=== PATIENT | male | born 1960 | race Asian ===

== ENCOUNTER 2024-03-30 07:05 | Observation (INO) | payer OTHER, SELFPAY ==
[2024-03-30] VITALS (18 sets, daily range): BP systolic 105–151; BP diastolic 58–83; PULSE 71–117; RESP 14–29; TEMP 36.2–36.6; O2SAT 92–100; BMI 24.3
--- NOTE | 2024-03-30 07:15 | ED.ABDPAIN ---
HPI - Abdominal Pain General Chief Complaint: Abdominal Pain Stated Complaint: L side ABD Pain Time Seen by Provider: 03/30/24 07:15 History of Present Illness HPI narrative: Patient is a 63-year-old male with no significant past medical history presents to the emergency department for 4 hours of left lower quadrant abdominal pain, describes it as intermittent waxing waning nothing making it better or worse, states he feels like it does radiate a little bit to his belly button. No nausea no vomiting. Does have a history of appendectomy. Denies any trauma or falls denies any other systemic symptoms at this time. Related Data Previous Rx's Medication Instructions Recorded cephalexin 500 mg capsule 500 mg PO TID 5 days #15 caps 03/30/24 ondansetron 4 mg disintegrating 4 mg PO Q8H PRN nausea and 03/30/24 tablet vomiting 5 days #15 tabs oxycodone-acetaminophen 5 mg-325 1 tab PO Q8H PRN pain 3 days #9 03/30/24 mg tablet (Percocet) tabs Allergies Allergy/AdvReac Type Severity Reaction Status Date / Time tamsulosin [From Flomax] Allergy Verified 03/30/24 07:18 Review of Systems Review of Systems Narrative: General: Denies fever, chills, weight loss HEENT: Denies headache, eye drainage, eye irritation, head trauma, sore throat, voice change Cardiovascular: Denies any chest pain, palpitations, shortness of breath, tachycardia Respiratory: Denies any shortness of breath, cough, wheeze, stridor GI/: Positive abdominal pain, denies, nausea, vomiting, diarrhea, bright red blood per rectum, melanotic stools, urinary frequency, urinary retention, dysuria, hematuria MSK: Denies any joint pain, muscle pains, swelling Skin: Denies any rashes, lesions, discoloration Neuro: Denies any headache, lightheadedness, dizziness, fainting, weakness Psych: Denies SI/HI Patient History Social History Smoking Status: Never smoker Exam Narrative Exam Narrative: General: Cooperative, comfortable, well-developed, not in acute distress HEENT: Normocephalic, atraumatic, PERRLA, normal sclera, eyelids normal, Neck: Active full range of motion, atraumatic Chest: Normal to inspection, negative crepitus, no overlying erythema ecchymosis Respiratory: Normal respiratory effort, not in acute respiratory distress, clear to auscultation bilaterally negative cough, wheeze, tachypnea, rhonchi, rales Cardiology: Regular rate rhythm negative gallop, murmur, rubs GI/: Normal to inspection, soft, nonrigid, mild tenderness to palpation to left lower quadrant, exam deferred MSK: Full range of active range of motion of all 4 extremities, atraumatic Skin: No rashes lesions noted Neuro: Alert awake oriented x3, moves all 4 extremities spontaneously, cranial nerves intact, able to answer all questions appropriately follows commands appropriately Psych: Cooperative, negative suicidal or homicidal ideations Initial Vital Signs Initial Vital Signs: Vital Signs Temperature 97.8 F 03/30/24 07:11 Pulse Rate 74 03/30/24 07:11 Respiratory Rate 16 03/30/24 07:11 Blood Pressure 139/75 03/30/24 07:11 Pulse Oximetry 100 03/30/24 07:11 Oxygen Delivery Method Room Air 03/30/24 07:11 Course Orders Ordered: ED Orders 03/30/24 07:09 Complete Blood Count AUTO DIFF Stat Comprehensive Metabolic Panel Stat Lactate (Lactic Acid) Stat Lipase Stat 03/30/24 07:18 CT abdomen pelvis w con Stat 03/30/24 08:16 Urine Microscopic Stat Discontinued Medications Sodium Chloride (Normal Saline 0.9%) 1,000 mls @ 1,000 mls/hr IV BOLUS ONE Stop: 03/30/24 08:47 Last Admin: 03/30/24 08:11 Dose: 1,000 mls/hr Documented By: KANDICE Ketorolac Tromethamine (Ketorolac 30 Mg/Ml Vial) 30 mg IV NOW ONE Stop: 03/30/24 07:18 Last Admin: 03/30/24 07:22 Dose: 30 mg Documented By: KANDICE Vital Signs Vital signs: Vital Signs - 8 hr 03/30/24 07:11 Temperature 97.8 F Pulse Rate 74 Respiratory Rate 16 Blood Pressure 139/75 Pulse Oximetry 100 Oxygen Delivery Method Room Air MDM - Abdominal Pain Differential Diagnosis Differential diagnosis: Likely abdominal pain, constipation, diverticulitis, small bowel obstruction and other (Urinary tract infection, electrolyte abnormality) Lab Data 03/30/24 07:09 03/30/24 07:09 Labs: Lab Results 03/30/24 Range/Units 07:09 WBC 7.2 (4.5-11.0) X10^3/uL RBC 4.51 (4.5-5.9) X10^6/uL Hgb 15.0 (13.5-17.5) g/dL Hct 44.9 (41-53) % MCV 99.6 (80-100) fL MCH 33.3 (26-34) PG MCHC 33.5 (30-36) % RDW 12.7 (11.6-14.8) % Plt Count 286 (150-400) X10^3/uL Neut % (Auto) 78.0 H (50-75) % Lymph % (Auto) 15.8 L (25-40) % [place] % (Auto) 5.2 (3-14) % Eos % (Auto) 0.5 L (2-4) % Baso % (Auto) 0.5 (0-2) % Neut # (Auto) 5600 (2602-7557) /uL Lymph # (Auto) 1100 (2971-4026) /uL [place] # (Auto) 400 (0-900) /uL Eos # (Auto) 0 (0-450) /uL Baso # (Auto) 0 (0-100) /uL Sodium 139 (137-145) mmol/L Potassium 4.1 (3.4-5.1) mmol/L Chloride 104 (98-107) mmol/L Carbon Dioxide 29 (22-32) mmol/L BUN 17 (9-20) mg/dL Creatinine 0.92 (0.66-1.25) mg/dL Estimated GFR > 60 (>60) mL/min BUN/Creatinine Ratio 18.5 (6-22) Glucose 161 H (80-110) mg/dL Lactate 2.4 H (0.7-2.1) mmol/L Calcium 9.0 (8.4-10.2) mg/dL Total Bilirubin 0.8 (0.2-1.3) mg/dL AST 28 (17-59) IU/L ALT 18 (<50) IU/L Alkaline Phosphatase 87 (38-126) U/L Total Protein 7.6 (6.3-8.2) g/dL Albumin 4.5 (3.5-5.0) g/dL Globulin 3.1 (1.7-4.1) g/dL Albumin/Globulin Ratio 1.5 (1.0-2.8) Lipase 56 (23-300) U/L Point of care testing: Urine Dip Bedside Urine Glucose Negative Bedside Urine Bilirubin - Negative Bedside Urine Ketone + 15 Urine Specific [place] 1.020 Bedside Urine Occult Blood +++ Bedside Urine pH 6.0 Bedside Urine Protein +/- 15 Bedside Urine Urobilinogen - Negative Bedside Urine Nitrite - Negative Bedside Urine Leukocytes +/- [address] scan - abdomen/pelvis: Radiologist's Impression: [address] [address] [address] Scan Report Signed Patient: Bryn Malloy MR#: [id number] : 1960 Acct:[id number] Age/Sex: 63 / M Date of Service: 03/30/24 Loc: Accession Number: [id number] Procedure: CT abdomen pelvis w con Ordering Provider: Osito Flores D.O. PROCEDURE: CT ABDOMEN PELVIS W CON INDICATIONS: llq abd pain TECHNIQUE: After the administration of intravenous contrast, axial sections acquired from the lung bases to the pubic symphysis. Coronal and sagittal reformats were performed. For radiation dose reduction, the following was used: automated exposure control, adjustment of mA and/or kV according to patient size. COMPARISON: None. FINDINGS: Image quality: Diagnostic. Lower Chest: Bibasilar dependent atelectasis is seen. ABDOMEN: Liver: No solid mass. Likely small cysts are seen scattered in liver parenchyma measures up to 1 cm in size in right hepatic dome. Gallbladder: No radiopaque gallstones or wall thickening. Biliary ducts: No biliary dilation. Pancreas: No ductal dilation. Spleen: Size is within normal limits. Adrenal Glands: No adrenal nodules. Kidneys and Ureters: There is prominence of left renal collecting system and left ureter extending to the level of left UVJ. 4 x 2 mm calcification is seen in the dependent portion of distal left ureter/UVJ series 2, image 115 and series 5, image 53 suggestive of distal left ureteral/UVJ stone. Simple appearing bilateral renal cysts are seen measures up to 5 x 5 cm in size in midpole right kidney and up to 3.7 x 3.3 cm in size in midpole left kidney. No complex renal cystic lesion which requires follow up. Stomach and Bowel: There is no evidence of bowel obstruction. Moderate fecal stasis in the colon is seen. No abnormal bowel wall thickening or mesenteric fat stranding. No abscess collection. Postsurgical changes are noted in right lower quadrant consistent with prior appendectomy. Peritoneum: No abnormal intraperitoneal fluid. No free air. Ventral Wall: No significant ventral hernia. Abdominal Nodes: No retroperitoneal or mesenteric adenopathy by size criteria. Vessels: Aorta and inferior vena cava are normal in size. PELVIS: Pelvic Organs: Markedly enlarged prostate gland with significant mass effect on floor of urinary bladder is seen.. Bladder: No bladder wall thickening, accounting for underdistention. Pelvic Nodes: No enlarged lymph nodes. Miscellaneous: No inguinal hernias are seen. Bones: No aggressive osseous abnormality. Degenerative disc disease at L5-S1 level is seen. Osteoarthritic changes are noted throughout bony pelvis. IMPRESSION: 1. Finding is suggestive of a 4 x 2 mm left distal ureteral/UVJ stone with [id number] left-sided hydronephrosis and hydroureter. No right-sided hydronephrosis or hydroureter. Simple appearing bilateral renal cysts as above. 2. Markedly enlarged prostate gland with significant mass effect on floor of urinary bladder. No gross bladder wall abnormalities. No calcified bladder stones. 3. Moderate constipation. There is no bowel obstruction or abnormal bowel wall thickening. No abscess collection. No free fluid or free air. Prior appendectomy. 4. Small hypodensities scattered in liver parenchyma likely represent hepatic cysts. [facility] Narrative Medical decision making narrative: Patient is a 63-year-old male with no significant past medical history is status post appendectomy presents for 4 hours of left lower quadrant cramping abdominal pain with radiation to the umbilicus. Patient without any signs of acute urinary tract infection, CT scan was positive for urolithiasis at the distal UVJ, 4 x 2, mild hydro nephrosis and hydroureter to the left. Patient also with enlarged prostate, however patient states that he knows about this. Additional information was obtained at time of discharge, he states that he does have a history of kidney stones, states that in the past they have been large enough that he would need intervention, he states that he is currently here on and a [place] due to recent passing of his family member, states he will be here for a little bit, but normally lives in [place], therefore I will provide him with urology here, and instructed him to follow up with them here if he is still in [place]. He also states that he has syncopal episodes whenever he is on Flomax therefore will defer administration of this at this time, states that his urologist has told him to avoid this in the past. At time of re-evaluation patient able to tolerate p.o. liquids and solids, nontoxic-appearing, feels comfortable attempting to pass this at home, Strict return precautions were given safe for discharge home with outpatient follow up Discharge Plan Departure Patient Disposition: Home Clinical Impression: Urolithiasis Activity Restrictions/Additional Instructions: Please follow up with Urology Please read the discharge instructions sheet carefully and bring all papers to all doctor follow-up visits, as it may contain information that your doctor may want to see. Disease processes change and evolve, if your symptoms worsen or if you develop any new symptoms that are concerning to you please return for evaluation. Your evaluation today does not show any evidence of any life-threatening/serious illnesses requiring admission to the hospital or surgery. Please follow-up with your doctor for re-evaluation in approximately 1 day. Seek immediate medical attention for any worrisome symptoms. Prescriptions: New oxycodone-acetaminophen [Percocet] 5-325 mg tablet 1 tab PO Q8H PRN (Reason: pain) 3 Days Qty: 9 0RF ondansetron 4 mg tablet,disintegrating 4 mg PO Q8H PRN (Reason: nausea and vomiting) 5 Days Qty: 15 0RF cephalexin 500 mg capsule 500 mg PO TID 5 Days Qty: 15 0RF Stand Alone Forms: Patient Portal/API
--- NOTE | 2024-03-30 07:18 | DI.CT.S_ITS ---
PROCEDURE: CT ABDOMEN PELVIS W CON INDICATIONS: llq abd pain TECHNIQUE: After the administration of intravenous contrast, axial sections acquired from the lung bases to the pubic symphysis. Coronal and sagittal reformats were performed. For radiation dose reduction, the following was used: automated exposure control, adjustment of mA and/or kV according to patient size. COMPARISON: None. FINDINGS: Image quality: Diagnostic. Lower Chest: Bibasilar dependent atelectasis is seen. ABDOMEN: Liver: No solid mass. Likely small cysts are seen scattered in liver parenchyma measures up to 1 cm in size in right hepatic dome. Gallbladder: No radiopaque gallstones or wall thickening. Biliary ducts: No biliary dilation. Pancreas: No ductal dilation. Spleen: Size is within normal limits. Adrenal Glands: No adrenal nodules. Kidneys and Ureters: There is prominence of left renal collecting system and left ureter extending to the level of left UVJ. 4 x 2 mm calcification is seen in the dependent portion of distal left ureter/UVJ series 2, image 115 and series 5, image 53 suggestive of distal left ureteral/UVJ stone. Simple appearing bilateral renal cysts are seen measures up to 5 x 5 cm in size in midpole right kidney and up to 3.7 x 3.3 cm in size in midpole left kidney. No complex renal cystic lesion which requires follow up. Stomach and Bowel: There is no evidence of bowel obstruction. Moderate fecal stasis in the colon is seen. No abnormal bowel wall thickening or mesenteric fat stranding. No abscess collection. Postsurgical changes are noted in right lower quadrant consistent with prior appendectomy. Peritoneum: No abnormal intraperitoneal fluid. No free air. Ventral Wall: No significant ventral hernia. Abdominal Nodes: No retroperitoneal or mesenteric adenopathy by size criteria. Vessels: Aorta and inferior vena cava are normal in size. PELVIS: Pelvic Organs: Markedly enlarged prostate gland with significant mass effect on floor of urinary bladder is seen.. Bladder: No bladder wall thickening, accounting for underdistention. Pelvic Nodes: No enlarged lymph nodes. Miscellaneous: No inguinal hernias are seen. Bones: No aggressive osseous abnormality. Degenerative disc disease at L5-S1 level is seen. Osteoarthritic changes are noted throughout bony pelvis. IMPRESSION: 1. Finding is suggestive of a 4 x 2 mm left distal ureteral/UVJ stone with [id number] left-sided hydronephrosis and hydroureter. No right-sided hydronephrosis or hydroureter. Simple appearing bilateral renal cysts as above. 2. Markedly enlarged prostate gland with significant mass effect on floor of urinary bladder. No gross bladder wall abnormalities. No calcified bladder stones. 3. Moderate constipation. There is no bowel obstruction or abnormal bowel wall thickening. No abscess collection. No free fluid or free air. Prior appendectomy. 4. Small hypodensities scattered in liver parenchyma likely represent hepatic cysts. Dictated by: Brandt Silva M.D. on 03/30/2024 at 8:30 Approved by: Brandt Silva M.D. on 03/30/2024 at 8:37
[2024-03-30] MEDS: KETOROLAC 30 MG/ML VIAL IV (07:22)
[2024-03-30 07:26] LABS: Add Manual Diff / Slide Review NO; Basophils Absolute Auto 0 /uL (0-100); Basophils Percent Auto 0.5 % (0-2); Eosinophils Absolute Auto 0 /uL (0-450); Eosinophils Percent Auto 0.5 % (2-4); Hematocrit 44.9 % (41-53); Lymphocytes Absolute Auto 1100 /uL (1100-4500); Lymphocytes Percent Auto 15.8 % (25-40); Mean Corpuscular HGB Conc 33.5 % (30-36); Mean Corpuscular Hemoglobin 33.3 PG (26-34); Mean Corpuscular Volume 99.6 fL (80-100); Monocytes Absolute Auto 400 /uL (0-900); Monocytes Percent Auto 5.2 % (3-14); Neutrophils Absolute Auto 5600 /uL (1500-7000); Platelet Count 286 X10^3/uL (150-400); Red Blood Cell Count 4.51 X10^6/uL (4.5-5.9); Red Cell Distribution Width 12.7 % (11.6-14.8); White Blood Cell Count 7.2 X10^3/uL (4.5-11.0)
[2024-03-30 07:31] LABS: Alanine Aminotransferase 18 IU/L (<50); Albumin 4.5 g/dL (3.5-5.0); Albumin Globulin Ratio 1.5 (1.0-2.8); Alkaline Phosphatase 87 U/L (38-126); Aspartate Aminotransferase 28 IU/L (17-59); BUN Creatinine Ratio 18.5 (6-22); Bilirubin Total 0.8 mg/dL (0.2-1.3); Blood Urea Nitrogen 17 mg/dL (9-20); Carbon Dioxide 29 mmol/L (22-32); Chloride 104 mmol/L (98-107); Estimated Glomerular Filt Rate > 60 mL/min (>60); Globulin 3.1 g/dL (1.7-4.1); Glucose 161 mg/dL (80-110); HEMOLYSIS < 15 (0-50); Lipase 56 U/L (23-300); Potassium 4.1 mmol/L (3.4-5.1); Sodium 139 mmol/L (137-145); Total Protein 7.6 g/dL (6.3-8.2)
[2024-03-30 07:32] LABS: Lactate (Lactic Acid) 2.4 mmol/L (0.7-2.1)
[2024-03-30] MEDS: SODIUM CHLORIDE 0.9% 1,000 ML 1000 ML IV ×2 (08:11→10:26)
[2024-03-30 08:58] LABS: Reflexed Lactate in 2 Hours Y
[2024-03-30 09:06] LABS: Bacteria Urine Occasional (0-1); Culture Indicated Urine Cult Not Indicated; Mucus Urine 1+ (Negative); RBC Urine 10-30/HPF (0-5/HPF); Squamous Epithelial Cell Urine 0-1 /HPF (0-5/HPF); Urine Volume 10mL (spun); WBC Urine 1-5/HPF (0-5/HPF)
[2024-03-30] MEDS: cephALEXin 250 MG CAPSULE 500 MG PO (09:07)
[2024-03-30] MEDS: KETOROLAC 30 MG/ML VIAL 15 MG IV (09:08)
--- NOTE | 2024-03-30 09:13 | PC.NURSE ---
stated okay to give torodol due to fluids received and labs. declined repeat lactate.
[2024-03-30] MEDS: MORPHINE 4 MG/ML INJ IM (09:32)
[2024-03-30] MEDS: ONDANSETRON 4 MG/2 ML INJ IV ×4 (10:25→20:00)
[2024-03-30] MEDS: MORPHINE 4 MG/ML INJ IV (10:25)
--- NOTE | 2024-03-30 11:13 | P.HP_ITS ---
History of Present Illness History of Present Illness Chief complaint: L side ABD Pain Narrative: From ED provider: Patient is a 63-year-old male with no significant past medical history presents to the emergency department for 4 hours of left lower quadrant abdominal pain, describes it as intermittent waxing waning nothing making it better or worse, states he feels like it does radiate a little bit to his belly button. No nausea no vomiting. Does have a history of appendectomy. Denies any trauma or falls denies any other systemic symptoms at this time. Additional information: The patient has a history of kidney stones. These are calcium oxalate. He had a procedure last year in his right kidney which sounds like laser lithotripsy. The patient presented to [facility] because of his father's passing. He has been working on fentanyl arrangements and then developed acute left groin and flank pain. He presented to the ED with nausea and pain. The pain is described as colicky with radiation to the groin. Imaging did confirm evidence of a 4 mm stone with hydronephrosis. The patient has had urinary tract infection associated with kidney stones in the past. No recent fevers, or chills. He was given Flomax once in the past and had precipitous hypotension. He is reluctant to use this again. [facility] Social History household members: spouse Smoking Status: Never smoker alcohol intake: never Meds Home Medications and Allergies Home Medications Medication Instructions Recorded Confirmed Type cephalexin 500 mg capsule 500 mg PO TID 5 days #15 caps 03/30/24 Rx ondansetron 4 mg disintegrating 4 mg PO Q8H PRN nausea and 03/30/24 Rx tablet vomiting 5 days #15 tabs oxycodone-acetaminophen 5 mg-325 1 tab PO Q8H PRN pain 3 days #9 03/30/24 Rx mg tablet (Percocet) tabs Allergies Allergy/AdvReac Type Severity Reaction Status Date / Time tamsulosin [From Flomax] Allergy Verified 03/30/24 07:18 Review of Systems Review of Systems Narrative: All else reviewed and otherwise unremarkable except as noted in the history and physical. Exam Vital Signs (past 8 hours): - 03/30/24 07:09 03/30/24 07:11 03/30/24 07:30 Temperature 97.8 F Pulse Rate 75 74 71 Respiratory Rate 16 20 Blood Pressure 139/75 Pulse Oximetry 100 100 97 Oxygen Delivery Method Room Air 03/30/24 07:31 03/30/24 07:31 03/30/24 08:16 Temperature Pulse Rate 75 83 Respiratory Rate 21 17 Blood Pressure 136/68 Pulse Oximetry 99 100 Oxygen Delivery Method 03/30/24 08:30 03/30/24 09:00 03/30/24 09:17 Temperature 97.5 F L Pulse Rate 74 85 80 Respiratory Rate 14 17 Blood Pressure Pulse Oximetry 100 100 99 Oxygen Delivery Method 03/30/24 09:17 Temperature Pulse Rate Respiratory Rate Blood Pressure 135/67 Pulse Oximetry Oxygen Delivery Method Oxygen Delivery Method Room Air Narrative Exam Narrative: NAD, alert and oriented, fluent speech, calm. Normocephalic skull, EOMI, anicteric sclera, symmetric pupils. Oropharynx unremarkable, no droop. Neck supple, midline trachea, no adenopathy. Lungs clear, normal rate and effort. Heart regular, no murmur gallop or rub. Abdomen is soft, non distended and non tender. Extremities are free of edema. Skin is free of rash or lesions. Joints are not swollen or deformed. Judgment appears to be normal. Objective Imaging CT scan - abdomen: Radiologist's impression: 1. Finding is suggestive of a 4 x 2 mm left distal ureteral/UVJ stone with [id number] left-sided hydronephrosis and hydroureter. No right-sided hydronephrosis or hydroureter. Simple appearing bilateral renal cysts as above. 2. Markedly enlarged prostate gland with significant mass effect on floor of urinary bladder. No gross bladder wall abnormalities. No calcified bladder stones. 3. Moderate constipation. There is no bowel obstruction or abnormal bowel wall thickening. No abscess collection. No free fluid or free air. Prior appendectomy. 4. Small hypodensities scattered in liver parenchyma likely represent hepatic cysts. Labs 03/30/24 07:09 03/30/24 07:09 Labs: Laboratory Results - last 24 hr 03/30/24 03/30/24 07:09 08:16 WBC 7.2 RBC 4.51 Hgb 15.0 Hct 44.9 MCV 99.6 MCH 33.3 MCHC 33.5 RDW 12.7 Plt Count 286 Neut % (Auto) 78.0 H Lymph % (Auto) 15.8 L [place] % (Auto) 5.2 Eos % (Auto) 0.5 L Baso % (Auto) 0.5 Neut # (Auto) 5600 Lymph # (Auto) 1100 [place] # (Auto) 400 Eos # (Auto) 0 Baso # (Auto) 0 Sodium 139 Potassium 4.1 Chloride 104 Carbon Dioxide 29 BUN 17 Creatinine 0.92 Estimated GFR > 60 BUN/Creatinine Ratio 18.5 Glucose 161 H Lactate 2.4 H Calcium 9.0 Total Bilirubin 0.8 AST 28 ALT 18 Alkaline Phosphatase 87 Total Protein 7.6 Albumin 4.5 Globulin 3.1 Albumin/Globulin Ratio 1.5 Lipase 56 Urine RBC 10-30/hpf H Urine WBC 1-5/hpf Ur Squamous Epith Cells 0-1 /hpf Urine Bacteria Occasional (0-1) Urine Mucus 1+ H Ur Culture Indicated? Cult not indicated Vol Urine Centrifuged 10ml (spun) Assessment & Plan Assessment & Plan narrative: 1. Obstructive left nephrolithiasis with hydronephrosis, present on admission and active. Plan: -admit to observation, anticipate a 1 midnight length of stay. -IV fluids and analgesics. -antiemetics. He is full resuscitation JOHN is March 31. He lives with his in [place], he was up here alone for his father's . Time-Based Coding :: 35 min spent with patient and on the chart (including review of chart, obtaining history, exam, reviewing outside data, placing orders, documenting exam and treatment plan, and counseling patient) on 03/30. Quality MIPS - Admit I confirm the patient?s Advance Care Plan is present, Code status is documented, Surrogate decision maker is in patient?s record [If Yes, STOP here]: Yes MIPS - Meds 'Current medications' to include all prescriptions, [id number] products, herbals, cannabis/cannabidiol products, and vitamin/mineral/dietary (nutritional) supplements. I have utilized all available resources to obtain, update, or review the patient?s current medications. [If Yes, STOP here]: Yes
[2024-03-30] MEDS: HYDROMORPHONE 0.5 MG INJ IV (11:48)
[2024-03-30] MEDS: SODIUM CHLORIDE 0.45% 1,000 ML 100 ML IV ×2 (12:51→22:01)
[2024-03-30 13:56] LABS: MRSA (Nasal) PCR NOT DETECTED (Not Detect)
[2024-03-30] MEDS: METOCLOPRAMIDE 10 MG/2 ML INJ 5 MG IV (15:49)
--- NOTE | 2024-03-30 18:36 | PC.NURSE ---
Admit Note Patient arrived to room 229 via wheelchair at 1236, SBA to bed, steady on feet. Denies pain, reports nausea. Medicated per emar. All belongings at bedside including cell phone, shoes, and clothing. Oriented to room and to bed/tv/call light controls. Using urinal independently to void, straining all urine. Call light within reach.
[2024-03-31 05:11] LABS: Add Manual Diff / Slide Review NO; Basophils Absolute Auto 0 /uL (0-100); Basophils Percent Auto 0.3 % (0-2); Eosinophils Absolute Auto 0 /uL (0-450); Eosinophils Percent Auto 0.4 % (2-4); Hematocrit 40.3 % (41-53); Hemoglobin 13.5 g/dL (13.5-17.5); Lymphocytes Absolute Auto 1200 /uL (1100-4500); Lymphocytes Percent Auto 12.6 % (25-40); Mean Corpuscular HGB Conc 33.5 % (30-36); Mean Corpuscular Volume 98.5 fL (80-100); Monocytes Absolute Auto 900 /uL (0-900); Monocytes Percent Auto 9.6 % (3-14); Neutrophils Absolute Auto 7300 /uL (1500-7000); Neutrophils Percent Auto 77.1 % (50-75); Platelet Count 225 X10^3/uL (150-400); Red Blood Cell Count 4.09 X10^6/uL (4.5-5.9); Red Cell Distribution Width 12.5 % (11.6-14.8); White Blood Cell Count 9.4 X10^3/uL (4.5-11.0)
[2024-03-31 05:23] LABS: Sodium 137 mmol/L (137-145)
[2024-03-31 05:26] LABS: BUN Creatinine Ratio 19.4 (6-22); Blood Urea Nitrogen 14 mg/dL (9-20); Calcium 8.3 mg/dL (8.4-10.2); Carbon Dioxide 26 mmol/L (22-32); Chloride 108 mmol/L (98-107); Estimated Glomerular Filt Rate > 60 mL/min (>60); Glucose 89 mg/dL (80-110); HEMOLYSIS 26 (0-50); Potassium 3.6 mmol/L (3.4-5.1)
[2024-03-31] MEDS: ACETAMINOPHEN 325 MG TABLET 650 MG PO (06:38)
[2024-03-31] MEDS: SODIUM CHLORIDE 0.45% 1,000 ML 100 ML IV (07:40)
[2024-03-31 07:53] VITALS: BP 135/69; PULSE 86; TEMP 36.6; O2SAT 99
--- NOTE | 2024-03-31 08:56 | P.DS_ITS ---
History of Present Illness History of Present Illness Chief complaint: L side ABD Pain Narrative: From ED provider: Patient is a 63-year-old male with no significant past medical history presents to the emergency department for 4 hours of left lower quadrant abdominal pain, describes it as intermittent waxing waning nothing making it better or worse, states he feels like it does radiate a little bit to his belly button. No nausea no vomiting. Does have a history of appendectomy. Denies any trauma or falls denies any other systemic symptoms at this time. Additional information: The patient has a history of kidney stones. These are calcium oxalate. He had a procedure last year in his right kidney which sounds like laser lithotripsy. The patient presented to [facility] because of his father's passing. He has been working on fentanyl arrangements and then developed acute left groin and flank pain. He presented to the ED with nausea and pain. The pain is described as colicky with radiation to the groin. Imaging did confirm evidence of a 4 mm stone with hydronephrosis. The patient has had urinary tract infection associated with kidney stones in the past. No recent fevers, or chills. He was given Flomax once in the past and had precipitous hypotension. He is reluctant to use this again. Discharge Providers Provider Date of admission: 03/30/24 10:11 Discharge Date: 03/31/24 Consults: None. Discharge provider: Alvarado Reardon MD Summary Hospital Course Discharge Diagnosis: 1. Obstructive left nephrolithiasis with hydronephrosis, present on admission and resolved. Hospital Course: He was admitted with renal colic and has a history of recurrent calcium oxalate stones. He was treated with IV fluids and pain medications as well as antiemetics. His pain resolved on the afternoon of arrival. He was fluid resuscitated overnight and had no further pain. He was intolerant of Flomax. He did not pass the stone. Clinically the stone has passed. He is stable for discharge home. Status at Discharge Cognitive/behavioral status at discharge: oriented Functional status at discharge: independent ambulation Overall status at discharge: patient is back to baseline Time Spent with Patient Time spent: Greater than 30 minutes Exam Vital Signs (past 8 hours): - 03/31/24 07:53 03/31/24 07:53 03/31/24 08:00 Temperature 97.8 F Pulse Rate 86 Blood Pressure 135/69 Pulse Oximetry 99 Oxygen Delivery Method Room Air Oxygen Delivery Method Room Air Oxygen Flow Rate 0 Narrative Exam Narrative: NAD, alert and oriented. Fluent speech. Lungs are clear, normal rate and effort. Heart is regular, no murmur gallop or rub. Abdomen is soft, non distended. Extremities are free of edema. Objective Imaging CT scan - abdomen: Radiologist's impression: CT scan - abdomen: Radiologist's impression: 1. Finding is suggestive of a 4 x 2 mm left distal ureteral/UVJ stone with [id number] left-sided hydronephrosis and hydroureter. No right-sided hydronephrosis or hydroureter. Simple appearing bilateral renal cysts as above. 2. Markedly enlarged prostate gland with significant mass effect on floor of urinary bladder. No gross bladder wall abnormalities. No calcified bladder stones. 3. Moderate constipation. There is no bowel obstruction or abnormal bowel wall thickening. No abscess collection. No free fluid or free air. Prior appendectomy. 4. Small hypodensities scattered in liver parenchyma likely represent hepatic cysts. Labs 03/31/24 04:13 03/31/24 04:13 Labs: Laboratory Results - last 24 hr 03/30/24 03/30/24 03/31/24 08:16 12:35 04:13 WBC 9.4 RBC 4.09 L Hgb 13.5 Hct 40.3 L MCV 98.5 MCH 33.0 MCHC 33.5 RDW 12.5 Plt Count 225 Neut % (Auto) 77.1 H Lymph % (Auto) 12.6 L [place] % (Auto) 9.6 Eos % (Auto) 0.4 L Baso % (Auto) 0.3 Neut # (Auto) 7300 H Lymph # (Auto) 1200 [place] # (Auto) 900 Eos # (Auto) 0 Baso # (Auto) 0 Sodium 137 Potassium 3.6 Chloride 108 H Carbon Dioxide 26 BUN 14 Creatinine 0.72 Estimated GFR > 60 BUN/Creatinine Ratio 19.4 Glucose 89 Calcium 8.3 L Urine RBC 10-30/hpf H Urine WBC 1-5/hpf Ur Squamous Epith Cells 0-1 /hpf Urine Bacteria Occasional (0-1) Urine Mucus 1+ H Ur Culture Indicated? Cult not indicated Vol Urine Centrifuged 10ml (spun) Nasal Screen MRSA (PCR) Not detected PFSH Social History household members: spouse Smoking Status: Never smoker alcohol intake: never Discharge Assessment & Plan Assessment and Plan Assessment: 1. Obstructive left nephrolithiasis with hydronephrosis, present on admission and resolved. Plan of Treatment: Discharge home, drink lots of fluids. Discharge Plan Discharge Plan Patient Disposition: Home Provider Discharge Comment: Stable for discharge home. Discharge orders & Medications Prescriptions: New oxycodone-acetaminophen [Percocet] 5-325 mg tablet 1 tab PO Q8H PRN (Reason: pain) 3 Days Qty: 9 0RF Patient Comments: Recent script from ER, pt has not taken yet ondansetron 4 mg tablet,disintegrating 4 mg PO Q8H PRN (Reason: nausea and vomiting) 5 Days Qty: 15 0RF Patient Comments: Recent script from ER, pt has not taken yet cephalexin 500 mg capsule 500 mg PO TID 5 Days Qty: 15 0RF Patient Comments: Recent script from ER, has not taken yet Continued ibuprofen 600 mg Tablet 600 mg PO TID PRN (Reason: Pain (Scale Score 4-6)) Medication counseling provided by Pharmacist: No Discharge Health Status Multidrug resistant organism: No MDRO Diet/Activity/Treatments Diet: Regular Visit Report/Discharge Packet Instructions: Kidney Stones -- Adult Stand Alone Forms: Patient Portal/API Discharge Data Attending Provider: Alvarado Reardon Admit Date/Time: 03/30/24 10:11 Quality VTE Deep Vein Thrombosis/Pulmonary Embolism Present on Admission: No
--- NOTE | 2024-03-31 10:13 | CM.DANOTE ---
DCP Assessment Note brief Pt is a 63yo M here with Obstructive left nephrolithiasis with hydronephrosis, PMH of kidney stones, admitted for fluids/analgesics, and antiemetics. PCP none listed Payer commercial ins and self pay [employer] reviewed EMR. Per chart, pt lives in [place] with spouse Carina ([phone]) and is in town for father's arrangements. Pt is indep normally. Per hospitalist, dc home today. Per RN, likely no CM needs except for transport. Provided Number for [employer] to take him to his hotel in [place]. Per Rn, likely able to pay for it just fine. P: return to hotel with [employer] to transport, OP f/u with PCP in [facility] recommended, CM team will continue to follow as needed AN Bejarano Discharge Planning/Care Management CM Discharge Assessment Start: 03/31/24 10:08 Freq: Status: Active Protocol: Document 03/31/24 10:09 JN (Rec: 03/31/24 10:10 [id number]) Discharge Planning Assessment Assigned Slip Laster AN Villagran Advance Directives? No History Provided By Patient Prior Living Arrangements House Household Members spouse Type of transporation used prior to Drives own vehicle admit Independent with ADL's Yes Is patient alert and oriented? Yes Barriers to Discharge No Discharge Plan Home Transportation Arrangement [employer] Referrals Initiated None needed Review Status In Process Please Provide Date Initial DC 03/31/24 Assessment Was Performed Next Review Type Continued Stay Review
== END 2024-03-31 10:28 | disposition home or self-care (01) ==
LOC: ED 10:07 → AC 10:12 → ICU 10:35
PROVIDERS: Admitting Provider Hospitalist; Emergency Provider Student in an Organized Health Care Education/Training Program; Referring Provider Student in an Organized Health Care Education/Training Program; Visit Provider Hospitalist
DX: N13.2 Hydronephrosis with renal and ureteral calculous obstruction (principal); Z87.442 Personal history of urinary calculi
CPT/HCPCS: 36415; 74177; 80048; 80053; 81003; 81015; 83605; 83690; 85025; 87797; 96361; 96372; 96374; 96375; 96376; 99284; G0378; J1171; J1885; J2270; J2405; J2765; J7050; Q9967